=== PATIENT | male | born 1955 | race Caucasian/White ===

== ENCOUNTER 2019-01-22 08:20 | Outpatient (CLI) | END 2019-01-22 08:21 | disposition home or self-care (01) | LOC: NONPT 08:20 | PROVIDERS: ATTEND Internal Medicine Endocrinology, Diabetes & Metabolism | DX: E11.65 Type 2 diabetes mellitus with hyperglycemia (principal); N18.9 Chronic kidney disease, unspecified; E03.9 Hypothyroidism, unspecified; I25.10 Atherosclerotic heart disease of native coronary artery without angina pectoris; E65 Localized adiposity | CPT/HCPCS: 83036; 84439; 84443 ==